=== PATIENT | female | born 1990 | race American Indian/Alaskan Native ===

== ENCOUNTER 2019-12-25 15:27 | Emergency (ER) | payer SELFPAY ==
[2019-12-25 15:33] VITALS: BP 127/82
[2019-12-25] MEDS ORDERED: SODIUM CHLORIDE 0.9% 1000 ML 1,000 ML IV ONE (16:00)
[2019-12-25] MEDS ORDERED: ONDANSETRON 4 MG/2 ML INJ IV ONE (16:00)
[2019-12-25 16:31] LABS: Basophils % (Auto) 0.6 % (0.0-1.8); Eosinophils # (Auto) 0.1 K/mm3 (0.0-0.4); Eosinophils % (Auto) 1.3 % (0.0-4.3); Hematocrit 42.8 % (30.3-42.9); Hemoglobin 13.8 gm/dl (10.1-14.3); Lymphocytes # (Auto) 2.5 K/mm3 (1.2-5.4); Lymphocytes % (Auto) 49.5 % (13.4-35.0); Mean Corpuscular HGB Conc 32 % (30-34); Mean Corpuscular Volume 96 fl (79-97); Monocytes # (Auto) 0.5 K/mm3 (0.0-0.8); Monocytes % (Auto) 10.8 % (0.0-7.3); Platelet Count 248 K/mm3 (140-440); Red Blood Count 4.44 M/mm3 (3.65-5.03); Red Cell Distribution Width 12.1 % (13.2-15.2)
[2019-12-25 16:35] LABS: Bilirubin,Urine NEG (Negative); Blood,Urine SM (Negative); Color,Urine Yellow (Yellow); HCG Qualitative,Urine Negative (Negative); Mucus,Urine 3+ /HPF; Protein,Urine <15 mg/dL mg/dL (Negative); Urobilinogen,Urine < 2.0 mg/dL (<2.0)
[2019-12-25] MEDS ORDERED: HYOSCYAMINE SUBL 0.125 MG TAB SL ONE (16:38)
[2019-12-25 16:56] LABS: Alanine Aminotransferase 15 units/L (7-56); Albumin 4.8 g/dL (3.9-5); BUN/Creatinine Ratio 10; Blood Urea Nitrogen 8 mg/dL (7-17); Hemolysis Index 16
--- NOTE | 2019-12-25 17:23 | Emergency Department Report ---
ED General Adult HPI - General Chief complaint: Nausea/Vomiting/Diarrhea Stated complaint: ABD PAIN Time Seen by Provider: 12/25/19 15:44 Source: patient Mode of arrival: Ambulatory Limitations: No Limitations - History of Present Illness Initial comments: Patient is a 29-year-old female that presents emergency room with complaints of diarrhea that began 4 days ago. She has associated fatigue. She states occasionally she feels cramping and churning sensation when she has to have the diarrhea but otherwise has no abdominal pain. She denies any vomiting, blood or pus in the stool, fever, dysuria, chest pain, shortness of breath, cough. She denies any sick contacts, recent travel, recent antibiotic use. She states that the last thing she ate before she started getting the diarrhea was Popeyes. She denies any past medical history or allergies to medications. She states her last menstrual cycle was November 28. - Related Data Previous Rx's Medication Instructions Recorded Last Taken Type Hyoscyamine Subl [Levsin Sl 0.125 0.125 mg SL Q6HR PRN #7 tab 12/25/19 Unknown Rx TAB] Ondansetron [Zofran Odt] 4 mg PO Q8HR PRN #10 tab.rapdis 12/25/19 Unknown Rx Allergies Allergy/AdvReac Type Severity Reaction Status Date / Time No Known Allergies Allergy Unverified 12/25/19 15:31 ED Review of Systems ROS: Stated complaint: ABD PAIN Other details as noted in HPI Comment: All other systems reviewed and negative ED Past Medical Hx - Past Medical History Previous Medical History?: No - Surgical History Past Surgical History?: No - Social History Smoking Status: Never Smoker Substance Use Type: Alcohol - Medications Home Medications: Home Medications Medication Instructions Recorded Confirmed Last Taken Type Hyoscyamine Subl [Levsin Sl 0.125 0.125 mg SL Q6HR PRN #7 tab 12/25/19 Unknown Rx TAB] Ondansetron [Zofran Odt] 4 mg PO Q8HR PRN #10 tab.rapdis 12/25/19 Unknown Rx ED Physical Exam - General Limitations: No Limitations General appearance: alert, in no apparent distress - Head Head exam: Present: atraumatic, normocephalic - Eye Eye exam: Present: normal appearance - ENT ENT exam: Present: mucous membranes moist - Respiratory Respiratory exam: Present: normal lung sounds bilaterally. Absent: respiratory distress, wheezes, rales, rhonchi, stridor, chest wall tenderness, accessory muscle use, decreased breath sounds, prolonged expiratory - Cardiovascular Cardiovascular Exam: Present: regular rate, normal rhythm, normal heart sounds. Absent: systolic murmur, diastolic murmur, rubs, gallop - GI/Abdominal GI/Abdominal exam: Present: soft, normal bowel sounds. Absent: distended, tenderness, guarding, rebound, rigid - Neurological Exam Neurological exam: Present: alert, oriented X3 - Psychiatric Psychiatric exam: Present: normal affect, normal mood - Skin Skin exam: Present: warm, dry, intact ED Course Vital Signs 12/25/19 12/25/19 15:31 15:41 Temperature 98.5 F Pulse Rate 83 83 Respiratory 18 18 Rate Blood Pressure 127/82 127/82 O2 Sat by Pulse 100 100 Oximetry ED Medical Decision Making - Lab Data Result diagrams: 12/25/19 15:52 12/25/19 15:52 Lab Results 12/25/19 12/25/19 12/25/19 Range/Units 15:52 15:52 16:10 WBC 5.0 (4.5-11.0) K/mm3 RBC 4.44 (3.65-5.03) M/mm3 Hgb 13.8 (10.1-14.3) gm/dl Hct 42.8 (30.3-42.9) % MCV 96 (79-97) fl MCH 31 (28-32) pg MCHC 32 (30-34) % RDW 12.1 L (13.2-15.2) % Plt Count 248 (140-440) K/mm3 Lymph % (Auto) 49.5 H (13.4-35.0) % [place] % (Auto) 10.8 H (0.0-7.3) % Eos % (Auto) 1.3 (0.0-4.3) % Baso % (Auto) 0.6 (0.0-1.8) % Lymph # 2.5 (1.2-5.4) K/mm3 [place] # 0.5 (0.0-0.8) K/mm3 Eos # 0.1 (0.0-0.4) K/mm3 Baso # 0.0 (0.0-0.1) K/mm3 Seg Neutrophils % 37.8 L (40.0-70.0) % Seg Neutrophils # 1.9 (1.8-7.7) K/mm3 Sodium 139 (137-145) mmol/L Potassium 3.9 (3.6-5.0) mmol/L Chloride 102.7 (98-107) mmol/L Carbon Dioxide 23 (22-30) mmol/L Anion Gap 17 mmol/L BUN 8 (7-17) mg/dL Creatinine 0.8 (0.7-1.2) mg/dL Estimated GFR > 60 ml/min BUN/Creatinine Ratio 10 % Glucose 91 (65-100) mg/dL Calcium 10.0 (8.4-10.2) mg/dL Total Bilirubin 0.50 (0.1-1.2) mg/dL AST 17 (5-40) units/L ALT 15 (7-56) units/L Alkaline Phosphatase 58 (35-129) units/L Total Protein 7.7 (6.3-8.2) g/dL Albumin 4.8 (3.9-5) g/dL Albumin/Globulin Ratio 1.7 % Lipase 59 (13-60) units/L Urine Color Yellow (Yellow) Urine Turbidity Clear (Clear) Urine pH 5.0 (5.0-7.0) Ur Specific [place] 1.028 (1.003-1.030) Urine Protein <15 mg/dl (Negative) mg/dL Urine Glucose (UA) Neg (Negative) mg/dL Urine Ketones 20 (Negative) mg/dL Urine Blood Sm (Negative) Urine Nitrite Neg (Negative) Urine Bilirubin Neg (Negative) Urine Urobilinogen < 2.0 (<2.0) mg/dL Ur Leukocyte Esterase Neg (Negative) Urine WBC (Auto) 2.0 (0.0-6.0) /HPF Urine RBC (Auto) 1.0 (0.0-6.0) /HPF U Epithel Cells (Auto) 6.0 (0-13.0) /HPF Urine Mucus 3+ /HPF Urine HCG, Qual Negative (Negative) - Medical Decision Making Patient is a 29-year-old female that presents emergency room with complaints of diarrhea that began 4 days ago. She has associated fatigue. She states occasionally she feels cramping and churning sensation when she has to have the diarrhea but otherwise has no abdominal pain. She denies any vomiting, blood or pus in the stool, fever, dysuria, chest pain, shortness of breath, cough. She denies any sick contacts, recent travel, recent antibiotic use. She states that the last thing she ate before she started getting the diarrhea was Popeyes. She denies any past medical history or allergies to medications. She states her last menstrual cycle was November 28. Vitals are normal. On exam no abdominal tenderness to palpation, no guarding, no rebound, no rigidity, normal bowel sounds. Labs are stable. UA without evidence of UTI. Urine is negative. Patient given 1 L IV fluid, Zofran, Levsin. Patient was able to tolerate p.o. intake while in the ED, she had no further episode of diarrhea, she was feeling better. pt given prescription for zofran and levsin. Advised pt Please increase your fluid intake for the next several days. Please take medication as prescribed as needed. Please begin with a liquid bland diet and slowly increase your diet as tolerated. Avoid anything greasy or sugary. Fol low-up with a primary care doctor for reexamination. Return to the emergency room for any new or worsening symptoms. - Differential Diagnosis Enteritis, gastroenteritis, viral syndrome, dehydration, colitis Critical care attestation.: If time is entered above; I have spent that time in minutes in the direct care of this critically ill patient, excluding procedure time. ED Disposition Clinical Impression: Diarrhea Qualifiers: Diarrhea type: unspecified type Qualified Code(s): R19.7 - Diarrhea, unspecified Fatigue Qualifiers: Fatigue type: unspecified Qualified Code(s): R53.83 - Other fatigue Disposition: DC-01 TO HOME OR SELFCARE Is pt being admited?: No Does the pt Need Aspirin: No Condition: Stable Instructions: Gastroenteritis (ED) Additional Instructions: Please increase your fluid intake for the next several days. Please take medication as prescribed as needed. Please begin with a liquid bland diet and slowly increase your diet as tolerated. Avoid anything greasy or sugary. Follow-up with a primary care doctor for reexamination. Return to the emergency room for any new or worsening symptoms. Prescriptions: Hyoscyamine Subl [Levsin Sl 0.125 TAB] 0.125 mg SL Q6HR PRN #7 tab PRN Reason: abdominal cramping/diarrhea Ondansetron [Zofran Odt] 4 mg PO Q8HR PRN #10 tab.rapdis PRN Reason: Nausea And Vomiting Referrals: KEAGAN BRENNAN MD [Staff Physician] - 3-5 Days [facility] [Provider Group] - 3-5 Days [facility] [Outside] - 3-5 Days [facility] [Outside] - 3-5 Days Time of Disposition: 17:21 Print Language: GEORGIAN
== END 2019-12-25 17:28 | disposition home or self-care (01) ==
LOC: ED 15:27
DX: R19.7 Diarrhea, unspecified (principal); R53.83 Other fatigue
CPT/HCPCS: 36415; 80053; 81001; 81025; 83690; 85025; 96361; 96374; 99283; J2405; J7030

== ENCOUNTER 2021-08-10 00:07 | Emergency (ER) | payer SELFPAY | END 2021-08-10 07:36 | LOC: ED 00:07 | DX: M54.50 Low back pain, unspecified (principal); Z53.21 Procedure and treatment not carried out due to patient leaving prior to being seen by health care provider ==